=== PATIENT | male | born 1970 | race Caucasian/White ===

== ENCOUNTER 2019-07-24 13:06 | Outpatient (REF) | payer MEDICAID, SELFPAY ==
[2019-07-24 22:25] LABS: ALT 45 U/L (16-63); AST 29 U/L (15-37); Albumin 4.2 g/dL (3.4-5.0); Alkaline Phosphatase 62 U/L (46-116); Anion Gap 8.6 mmol/L (3-11); BUN 18 mg/dL (7-18); Bilirubin, Total 0.5 mg/dL (0.2-1.0); CO2 30.4 mmol/L (21.0-32.0); CREATININE 0.81 mg/dL (0.70-1.30); Calcium 8.7 mg/dL (8.5-10.1); Calculated LDL 202 mg/dL (<100); Chloride 104 mmol/L (98-107); Cholesterol 291 mg/dL (<200); Glucose 95 mg/dL (74-106); HDL Cholesterol 32 mg/dL (40-60); Sodium 143 mmol/L (136-145); Total Protein 6.8 g/dL (6.4-8.2); Triglyceride 288 mg/dL (<150)
[2019-07-26 10:00] LABS: PSA, Screening 0.9 ng/mL (0.0-3.5)
== END 2019-07-24 13:26 ==
LOC: NCHCN 13:06
PROVIDERS: Visit Provider Specialist/Technologist Athletic Trainer
DX: Z13.220 Encounter for screening for lipoid disorders (principal); Z13.228 Encounter for screening for other metabolic disorders; Z12.5 Encounter for screening for malignant neoplasm of prostate
CPT/HCPCS: 80053; 80061; 84153

== ENCOUNTER 2019-07-30 00:40 | Outpatient (CLI) | payer MEDICAID, SELFPAY ==
--- NOTE | 2019-07-30 | DI.US_ITS ---
TECHNIQUE: Ultrasound abdomen performed using standard protocol. COMPARISON: No exams were available for comparison FINDINGS: LIVER: Normal echogenicity. Hepatopedal flow in the Portal Vein. Multiple anechoic well-circumscribe d areas throughout the liver suggestive of cysts. The largest measures 3.6 cm. GALLBLADDER: No evidence of cholelithiasis. No evidence of wall thickening. No pericholecystic fluid identified. KIDNEYS: Kidneys are symmetric in size. No evidence of renal calculi. No evidence of hydronephrosis. No solid renal mass. There are bilateral simple renal cysts present. The largest is on the left and measures 2.5 cm. BILIARY SYSTEM: The common bile duct could not be measured due to overlying bowel gas. No intrahepat ic biliary ductal dilation. MUHAMMAD'S SIGN: Negative. PANCREAS: Normal where visualized. SPLEEN: Not enlarged. ABDOMINAL AORTA AND IVC: Visualized portions normal caliber. ASCITES: None seen. IMPRESSION: 1. Limited examination due to overlying bowel gas. 2. Hepatic and renal cysts. DATA REPOSITORY:
== END 2019-07-30 01:00 ==
PROVIDERS: Visit Provider Specialist/Technologist Athletic Trainer
DX: R10.9 Unspecified abdominal pain (principal); N28.1 Cyst of kidney, acquired
CPT/HCPCS: 76700

== ENCOUNTER 2019-11-06 07:56 | Outpatient (CLI) | payer MEDICAID, SELFPAY ==
[2019-11-06 22:37] LABS: COVID-19 RT-PCR UVMMC Result Negative (Negative)
== END 2019-11-06 08:16 ==
PROVIDERS: PCP Nurse Practitioner Family; Visit Provider Surgery
DX: Z01.818 Encounter for other preprocedural examination (principal); Z11.59 Encounter for screening for other viral diseases
CPT/HCPCS: U0003

== ENCOUNTER 2019-11-09 07:07 | Day surgery (SDC) | payer MEDICAID, SELFPAY ==
[2019-11-09 07:25] VITALS: BP 115/80; PULSE 64; RESP 18; TEMP 36.6; O2SAT 97
[2019-11-09] MEDS: Lactated Ringers 1,000 ML 80 ML IV (07:44)
--- NOTE | 2019-11-09 08:05 | W.PM.DSUDISC ---
Discharge Plan Disposition Patient Disposition: HOME Condition: Good Discharge Details Reason For Visit: EGD, Colonoscopy Attending Provider: Isela Larsen Primary Care Provider: Sherry Desir Home Meds and New Rx's Prescriptions: Continued vitamin E 200 unit capsule 200 unit PO DAILY RF: 0 omega-3 fatty acids [Fish Oil Concentrate] 1,000 mg capsule 1,000 mg PO DAILY RF: 0 vitamin B complex Tablet 1 tab PO DAILY RF: 0 Discontinued polyethylene glycol 3350 17 gram/dose powder 17 g PO ONCE Qty: 238 RF: 0 bisacodyl [Dulcolax (bisacodyl)] 5 mg tablet,delayed release (DR/EC) 5 mg PO ONCE Qty: 4 RF: 0 aspirin 325 mg tablet 325 mg PO DAILY RF: 0 Discharge Instructions Additional Instructions: Findings: Your upper endoscopy (EGD) showed inflammation in the stomach (gastritis). Stop taking aspirin and take an antacid for a month to heal the area. A small polyp was removed from the rectum. My office will contact you with results. Follow up: My office will contact you to schedule CT scan of the abdomen. If the biopsy shows an adenomatous rectal polyp, you will need follow up colonoscopy in 5 years. Please call if you develop: fevers >101.5 Nausea or Vomiting Abdominal pain that is not transient DAY SURGERY UNIT POST COLONOSCOPY INSTRUCTIONS 1. Because there will be medication in your system for the next 24 hours, you may feel a little sleepy. Your coordination will be affected. Therefore: a. Do not drive or operate dangerous equipment for 24 hours. b. Do not drink alcohol beverages for 24 hours (not even beer). c. Plan to go home and rest for the day. 2. Generally there are no restrictions on your activity after a day or so has gone by, but you may feel a bit fatigued for a few days. 3 After you arrive home you may have a light meal and return to a normal diet as you can tolerate it without feeling sick to your stomach. 4. After surgery, you may feel pain or discomfort. This should be only transient, but if it persists please contact your doctor. 5. If there are any questions regarding the findings of your procedure, please feel free to contact your doctor. 6. If you are unable to contact your doctor with a problem, contact the hospital at [phone]. 7. Continue all your regular medications unless directed otherwise. I understand the above instructions and have no questions. Signature of Patient or Responsible Adult Escort Date/Time Name of Responsible Adult Escort Signature of Nurse Date/Time Activity:: Activity as Tolerated Diet:: As Tolerated Discharge Orders Discharge Orders: Discharge Order (Routine); Ordered 11/09/19 Ordered By: Isela Larsen DS: Diagnosis Discharge Diagnosis (1) Gastritis: Status: Acute (2) Colon polyp: Status: Acute
--- NOTE | 2019-11-09 08:16 | STOM_PTH ---
PATIENT: Polo Berkowitz LOC: [facility] U#:[id number] AGE/SX: 49/M ROOM: RE11/09/[address]: Isela Larsen MD : 1970 BED: DIS: 11/09/2019 SPEC #: [id number] RECD: 11/09/19 11:37 STATUS: RADHA REPatrciio #: [id number] MARTINE: 11/09/19 08:[address]: Isela Larsen DEPT: Surgical Specimen RECD BY: Jojo Canales ENTERED: 11/09/19 11:38 SP TYPE: STOMACH OTHR DR: Sherry Deisr Tissues: 1 - BIOPSY BOWEL 2 - STOMACH BIOPSY 3 - ESOPHAGUS BIOPSY 4 - BIOPSY BOWEL Procedures: GROSS AND MICRO LEVEL 4 Comments: [id number]
--- NOTE | 2019-11-09 09:11 | W.PM.ENDDOP ---
Date of service: 11/09/19 Time of Service: 09:11 Endoscopy Report DATE OF PROCEDURE: 11/09/19 PRE-OP DIAGNOSIS: GERD, Screening colonoscopy POST-OP DIAGNOSIS: other (Antral gastritis, possible Barretts, rectal polyp) PROCEDURE: EGD with duodenal, gastric and distal esophageal biopsy Colonoscopy with cold forceps polypectomy SURGEON: Isela Larsen ANESTHESIA: MAC DISPOSITION: same day INDICATIONS: This patient presents for his first screening colonoscopy. He also has a history of atypical chest pain and GERD. PROCEDURE DESCRIPTION: The patient was placed in the left lateral position and propofol titrated to sedation. The endoscope was advanced into the esophagus under direct visualization. The scope was passed through the stomach and into the duodenum. There was no duodenitis or ulceration noted. Biopsies were taken from the second portion of the duodenum to evaluate for celiac disease. The stomach itself showed moderate antral gastritis. Biopsies were taken from the region. Retroflexed view of the fundus and lesser curvature were normal. The GE junction was inspected and showed no significant stricture, inflammation, masses. There may have been a short area of Barretts change which was difficult to measure due to underdistension. This was biopsied as a precaution. The scope was slowly withdrawn with no other esophageal lesions found. The patient was placed in the left Haider position. Propofol was titrated to sedation. Digital rectal examination revealed no abnormalities. The scope was advanced to the cecum without difficulty. The ileocecal valve and appendiceal orifice were clearly identified. The prep was good. The scope was slowly withdrawn over the course of greater than 6 minutes with no abnormalities seen in the ascending, transverse, descending, sigmoid colon. A diminuitive polyp was removed from the recum. The patient tolerated the procedure well and was stable to recovery. If the rectal polyp is adenomatous, he will need follow up colonoscopy in 5 years.
[2019-11-09 09:45] VITALS: BP 117/67; PULSE 85; RESP 18; TEMP 36.7; O2SAT 98
== END 2019-11-09 10:25 | disposition home or self-care (01) ==
PROVIDERS: PCP Nurse Practitioner Family; Visit Provider Surgery
PROC: (CPT 45380; principal; 2019-11-09 08:15)
DX: K31.89 Other diseases of stomach and duodenum (principal); K21.0 Gastro-esophageal reflux disease with esophagitis; Z12.11 Encounter for screening for malignant neoplasm of colon; K29.60 Other gastritis without bleeding
CPT/HCPCS: 45380; 43239; 88305; J2001

== ENCOUNTER 2019-11-15 01:00 | Outpatient (CLI) | payer MEDICAID, SELFPAY ==
[2019-11-15] MEDS: Omnipaque 350 MG/ML 50 ML BTL IJ (08:51)
[2019-11-15] MEDS: Breeza Beverage 473 ML BTL PO ×2 (08:52)
--- NOTE | 2019-11-15 10:38 | DI.CT_ITS ---
EXAM: CT ABDOMEN PELVIS W CLINICAL HISTORY: Pain to right of umbilicus, rt lateral abd pain TECHNIQUE: Imaging Protocol: Axial computed tomography images with coronal and sagittal reformatted images were created and reviewed CONTRAST MATERIAL: Intravenous: Omnipaque 350 Contrast volume:100 mL Oral: Yes COMPARISON: US US ABDOMEN from 07/30/2019 FINDINGS: ABDOMEN: Lung Bases: Normal where visualized. Liver: Normal density. Innumerable hepatic cysts. Portal, Superior Mesenteric, and Splenic Veins: Unremarkable. Gallbladder and Biliary Tract: No radiodense calculus or dilation. Pancreas: Normal density, no abnormal calcifications or inflammatory process. Spleen: Tiny splenic cyst. Mild splenomegaly. Adrenals: No masses seen. Kidneys: Normal size, contour and axis. No radiodense stones or obstructive uropathy. Bilateral renal cysts. Abdominal Aorta: Abdominal portion non-dilated. Mild atherosclerosis. Retroaortic left renal vein. Bowel: No obstruction or bowel wall thickening. Appendix is unremarkable. Peritoneal Cavity: No ascites, collection or mesenteric inflammatory response. Lymph Nodes: Within normal limits. Bones: Mild degenerative changes. Soft Tissues: Small fat containing umbilical hernia. PELVIS: Bladder: Symmetric distention, no gross wall thickening. Reproductive Organs: Unremarkable as visualized. Lymph Nodes: Within normal limits. Bones: Mild degenerative changes. IMPRESSION: 1. Small fat containing umbilical hernia. No abdominal wall mass or abscess. 2. Hepatic and renal cysts. 3. Mild splenomegaly. RADIATION DOSE DELIVERED: Total DLP DATA REPOSITORY: All CT scans at this facility are submitted to the National Radiology Data Registry (NRDR) Dose Index Registry (DIR) with the [employer] (ACR). RADIATION OPTIMIZATION: All CT scans at this facility use at least one of these dose optimization te chniques: automated exposure control; mA and/or kV adjustment per patient size (includes targeted exa ms where dose is matched to clinical indication); or iterative reconstruction.
== END 2019-11-15 01:20 ==
PROVIDERS: PCP Nurse Practitioner Family; Visit Provider Surgery
DX: R10.33 Periumbilical pain (principal); K42.9 Umbilical hernia without obstruction or gangrene; K76.89 Other specified diseases of liver; N28.1 Cyst of kidney, acquired; R16.1 Splenomegaly, not elsewhere classified
CPT/HCPCS: 74177; Q9967

== ENCOUNTER 2020-08-28 16:28 | Outpatient (REF) | payer MEDICAID, SELFPAY ==
[2020-08-28 20:00] LABS: ALT 42 U/L (16-63); AST 26 U/L (15-37); Calculated LDL 136 mg/dL (<100); Cholesterol 201 mg/dL (<200); HDL Cholesterol 39 mg/dL (40-60); Triglyceride 130 mg/dL (<150)
[2020-08-29 17:22] LABS: PSA, Screening 0.9 ng/mL (0.0-3.5)
[2020-09-01 13:30] LABS: Tissue Transglutaminase Ab IgA <1.2 U/mL
== END 2020-08-28 16:29 | disposition home or self-care (01) ==
LOC: NCHCN 16:28
PROVIDERS: PCP Nurse Practitioner Family; Visit Provider Nurse Practitioner Family
DX: E78.5 Hyperlipidemia, unspecified (principal); K29.70 Gastritis, unspecified, without bleeding; Z91.89 Other specified personal risk factors, not elsewhere classified; Z12.5 Encounter for screening for malignant neoplasm of prostate
CPT/HCPCS: 80061; 84153; 83516; 84450; 84460

== ENCOUNTER 2023-07-02 04:22 | Emergency (ER) | payer MEDICAID, SELFPAY ==
[2023-07-02 04:25] VITALS: BP 147/91; PULSE 69; RESP 16; TEMP 37.1; O2SAT 99
--- NOTE | 2023-07-02 04:30 | DI.CT_ITS ---
Exam(s) CT FACIAL W EXAM: CT FACIAL W CLINICAL HISTORY: left dental abscess, left anterior neck TTP. TECHNIQUE: Imaging Protocol: Axial computed tomography images with coronal and sagittal reformatted images were created and reviewed CONTRAST MATERIAL: Intravenous: Omnipaque 350 Contrast volume:structured data in ml mL COMPARISON: There are no priors for comparison. FINDINGS: There is artifact from the patient's dental hardware. Facial Bones: No definite fracture is noted in facial bones. There is a periapical lucency seen arou nd the root of the left 1st bicuspid. (Series 12, image 37). The dental artifact in this area limit s further characterization. Sinuses and Mastoids: There are mucous retention cysts in the maxillary sinuses bilaterally. There is opacification of a few ethmoid air cells. The remaining visualized paranasal sinuses are clear. Globes, extraocular muscles, optic nerves and retrobulbar fat: Normal. Upper aerodigestive tract: Normal. Mandible and bilateral temporomandibular joints: Normal. Soft tissues: There is infiltration of the soft tissues overlying the left maxilla and mandible. No focal fluid collection is seen to suggest an abscess. Enhancement: No abnormal enhancement. IMPRESSION: 1. There is a periapical lucency seen around the root of the left 1st bicuspid suspicious for periapi julisa abscess/cyst. There is associated soft tissue edema surrounding the maxilla and mandible on the left. No definite focal fluid collection is seen to suggest an abscess. However, evaluation is limi aranza by the extensive dental artifact. 2. Mucous retention cysts in the maxillary sinuses bilaterally. RADIATION DOSE DELIVERED: 1,200.64mGy.cm Total DLP DATA REPOSITORY: All CT scans at this facility are submitted to the National Radiology Data Registry (NRDR) Dose Index Registry (DIR) with the [employer] (ACR). RADIATION OPTIMIZATION: All CT scans at this facility use at least one of these dose optimization te chniques: automated exposure control; mA and/or kV adjustment per patient size (includes targeted exa ms where dose is matched to clinical indication); or iterative reconstruction.
--- NOTE | 2023-07-02 04:30 | DI.CT_ITS ---
Exam(s) CT NECK W EXAM: CT NECK W CLINICAL HISTORY: left dental abscess, left anterior neck TTP. TECHNIQUE: Imaging Protocol: Axial computed tomography images with coronal and sagittal reformatted images were created and reviewed. CONTRAST MATERIAL: Intravenous: Omnipaque 350 Contrast volume:100mL COMPARISON: No exams were available for comparison FINDINGS: Visualized paranasal sinuses: Mucous retention cysts are seen in the maxillary sinuses bilaterally. Nasopharynx: Within normal limits. Oropharynx: Within normal limits. Hypopharynx: Within normal limits. Larynx: Within normal limits. Retropharyngeal space: Within normal limits. Parotids/submandibular: Within normal limits. Thyroid gland: There is a solitary calcification in the right lobe of the thyroid gland. Thyroid gl and is otherwise unremarkable. Lymphadenopathy: There is scattered lymph nodes seen along the level one to level three all measurin g less than 8 mm in short axis diameter which are physiologic in nature. Trachea: Within normal limits. Lung apices: Within normal limits. Bones: Within normal limits for the patient's age. Carotids/Jugular: Within normal limits. Soft tissues: Within normal limits. IMPRESSION: No acute abnormality. RADIATION DOSE DELIVERED: 1,200.64mGy.cm Total DLP 1,200.64mGy.cm Total DLP DATA REPOSITORY: All CT scans at this facility are submitted to the National Radiology Data Registry (NRDR) Dose Index Registry (DIR) with the [employer] (ACR). RADIATION OPTIMIZATION: All CT scans at this facility use at least one of these dose optimization te chniques: automated exposure control; mA and/or kV adjustment per patient size (includes targeted exa ms where dose is matched to clinical indication); or iterative reconstruction.
[2023-07-02] MEDS: Clindamycin 150 MG CAP 450 MG PO (04:48)
[2023-07-02] MEDS: Benzocaine 20% Gel 30 GM JAR MM (04:49)
--- NOTE | 2023-07-02 04:52 | ED.GENADUL_ITS ---
HPI General Mode of arrival: ambulatory . Date/Time Provider Initiated Documentation: 07/02/23 04:28 . Limitations to Documentation: no limitations . Information obtained by: patient . HPI Narrative: 53yo M with hx HLD presenting with dental pain and facial swelling. Has a broken tooth and an abscess; has seen his dentist and has an appointment to have tooth pulled in July. Was prescribed a z pack which he just completed. Pain and facial swelling persist, unrelieved by home tylenol and ibuprofen. Whenever he brushes the area it bleeds; has not noted any pus draining. He is otherwise in his usual state of health with no fevers, rash, nausea, vomiting, abdominal pain, chest pain, shortness of breath, neck swelling, neck pain, or other concerns. Related Data Home Medications Medication Instructions Recorded Confirmed omega-3 fatty acids 1,000 mg 1,000 mg PO DAILY 10/15/19 07/02/23 capsule (Fish Oil Concentrate) vitamin E 200 unit capsule 200 unit PO DAILY 10/22/19 07/02/23 vitamin B complex 1 tab PO DAILY 11/08/19 07/02/23 omeprazole magnesium 20 mg 20 mg PO DAILY #30 tabs 11/09/19 07/02/23 tablet,delayed release levofloxacin 750 mg tablet 750 mg PO DAILY #10 tabs 07/02/23 metronidazole 500 mg tablet 500 mg PO Q8H #30 tabs 07/02/23 Previous Rx's Medication Instructions Recorded omeprazole magnesium 20 mg 20 mg PO DAILY #30 tabs 11/09/19 tablet,delayed release levofloxacin 750 mg tablet 750 mg PO DAILY #10 tabs 07/02/23 metronidazole 500 mg tablet 500 mg PO Q8H #30 tabs 07/02/23 Allergies Allergy/AdvReac Type Severity Reaction Status Date / Time penicillin V Allergy Severe unknown Verified 07/02/23 04:29 walnut Allergy Severe unknown Verified 07/02/23 04:29 General Stated Complaint: DentalOral AMARI: 4 Review of Systems Narrative: see HPI Exam Narrative Exam Narrative: General: Alert, well appearing, well nourished, in no acute distress. Head: Normocephalic, atraumatic Neck: Trachea midline, ?Neck supple. Left anterior neck TTP, no overlying warmth or erythema. ENT: ?MMM.? Uvula midline. Abscess adjacent to tooth #12 , no drainage. Left cheek swollen. Mastoid nontender. Cardiac: ?No cyanosis. Resp: No respiratory distress. Speaking in full sentences. Extremities: ?No deformities.? No peripheral edema. Neurologic: GCS 15. ? Moves all extremities freely against gravity Course Vital Signs Vital signs: Vital Signs Temperature 37.1 C 07/02/23 04:25 Pulse 69 07/02/23 04:25 Respiratory Rate 16 07/02/23 04:25 Blood Pressure 147/91 H 07/02/23 04:25 Pulse Oximetry 99 07/02/23 04:25 Temperature 37.1 C 07/02/23 04:25 Temperature Source Skin 07/02/23 04:25 Pulse 69 07/02/23 04:25 Respiratory Rate 16 07/02/23 04:25 Respiratory Effort Normal, Non-Labored 07/02/23 04:30 Blood Pressure 147/91 H 07/02/23 04:25 Blood Pressure Position Sitting 07/02/23 04:25 Pulse Oximetry 99 07/02/23 04:25 Oxygen Delivery Method Room Air 07/02/23 04:25 Oxygen Flow Rate 0 07/02/23 04:25 Pain Level 5 07/02/23 04:25 Medical Decision Making 53yo M with hx HLD presenting with dental pain and facial swelling. Saw his dentist on Tuesday, has broken tooth and dental abscess, scheduled to have tooth pulled on 08/07, was given z-pack which he just completed. Pain and swelling persist. Systemically well with no fevers, rash, nausea, vomiting, or other concerns. No respiratory distress. Reassuring vital signs on arrival, on exam he does have left facial swelling and abscess adjacent to tooth #12. Not septic; will not get labs. Some anterior neck tenderness on exam; will get CT to evaluate extent of infection. Clinically not concerning for Souleymane's or Lemierre's. Hurricane gel for pain, pt declined oxycodone. CT independently reviewed, abscess present, radiology read below with no deep space infection in neck.. On reassessment he remains non-toxic appearing with reassuring vital signs. Given pxn allergy and no improvement with azithromycin, prescribed 10 day course of flagyl and levofloxacin. He has good dental followup. Strict return precautions were reviewed. Discharged home; discharge instructions and return precautions were reviewed with patient who verbalized understanding. All questions were answered and he is in full agreement with the plan. Quality:[facility] Health Related Social Needs: No Data to Display PFSH All Active Problems (Updated 07/02/23 @ 05:55 by Parris Hernández MD) Abscess, periapical (Acute) Colon polyp (Acute) Gastritis (Acute) Right lateral abdominal pain (Acute) Colon cancer screening (Acute) GERD (gastroesophageal reflux disease) (Chronic) Medical History (Updated 07/02/23 @ 05:55 by Parris Hernández MD) Family history of alcoholism Hyperlipidemia Right shoulder pain Pt. states this is his LEFT Abdominal pain Dyspepsia Elevated liver enzymes Surgical History History of ear surgery Ear drum replacement, Skin graft on my ear drum because I had it punctured Hx of tympanostomy tubes x4 Social History Smoking/Tobacco Use Status: Never Smoking risk assessment performed?: Yes Alcohol Intake: never Drug use: Never Substance use type: does not use Do you feel safe at home: Yes Do you feel safe in your relationship?: Yes Discharge Plan Disposition Patient Disposition: Home Condition: Good Discharge Details Clinical Impression: Abscess, periapical Primary Care Provider: Sherry Desir ED Provider: Parris Hernández Home Meds and New Rx's Prescriptions: New metronidazole 500 mg tablet 500 mg PO Q8H Qty: 30 0RF levofloxacin 750 mg tablet 750 mg PO DAILY Qty: 10 0RF Continued vitamin E 200 unit capsule 200 unit PO DAILY omega-3 fatty acids [Fish Oil Concentrate] 1,000 mg capsule 1,000 mg PO DAILY omeprazole magnesium 20 mg tablet,delayed release (DR/EC) 20 mg PO DAILY Qty: 30 1RF vitamin B complex Tablet 1 tab PO DAILY Discharge Instructions Instructions: Dental Abscess (ED) Additional Instructions: Call your dentist as soon as possible to discuss your visit here and to move up your appointment to have your tooth pulled. Take the antibiotics as prescribed until they are all gone. Tylenol and ibuprofen over the counter for pain; follow the directions on the bottle. Return to the emergency department for new or worsening symptoms including fever, neck pain/swelling, difficulty breathing, intolerable pain, or if you have any other concerns. Referrals: Sherry Deisr [Primary Care Provider] -
[2023-07-02] MEDS: Omnipaque 350 MG/ML 100 ML BTL IJ (05:41)
[2023-07-02] MEDS: Normal Saline - Diluent 50 ML VIAL IJ (05:42)
[2023-07-02] MEDS: Normal Saline Flush 10 ML SYR IVP (05:42)
--- NOTE | 2023-07-02 05:46 | DI.VRAD_ITS ---
PROCEDURE INFORMATION: Exam: CT Maxillofacial With Contrast Exam date and time: 07/02/2023 5:01 AM Age: 53 years old Clinical indication: Other: Left dental abscess, left anterior neck ttp TECHNIQUE: Imaging protocol: Computed tomography of the face with contrast. Contrast material: OMNI 350; Contrast volume: 60 ml; Contrast route: INTRAVENOUS (IV); COMPARISON: CT NECK W 07/02/2023 5:01 AM FINDINGS: Orbital cavities: Orbits are normal. Globes are unremarkable. Bones/joints: There is a #12 periapical dental lucency with external cortical breakthrough and overlying soft tissue inflammation, compatible with a periapical dental abscess. There may be an associated subperiosteal abscess (images 74-78 of axial series 10); however, the dense associated beam hardening artifact makes this difficult to assess with certainty. There is no soft tissue gas. Paranasal sinuses: Multiple small polyp/mucous retention cyst in the maxillary sinuses bilaterally. Soft tissues: See Bones/joints finding. Dental: There is extensive dental hardware with associated beam hardening artifact, limiting evaluation. IMPRESSION: 1. There is extensive dental hardware with associated beam hardening artifact, limiting evaluation. 2. There is a #12 periapical dental lucency with external cortical breakthrough and overlying soft tissue inflammation, compatible with a periapical dental abscess. There may be an associated subperiosteal abscess (images 74-78 of axial series 10); however, the dense associated beam hardening artifact makes this difficult to assess with certainty. There is no soft tissue gas. Dictated and Authenticated by: Collin Saenz MD. Ordering:MOE Nye MD
--- NOTE | 2023-07-02 05:48 | DI.VRAD_ITS ---
PROCEDURE INFORMATION: Exam: CT Neck With Contrast Exam date and time: 07/02/2023 5:01 AM Age: 53 years old Clinical indication: Other: Left dental abscess, left anterior neck ttp TECHNIQUE: Imaging protocol: Computed tomography of the neck with contrast. Contrast material: OMNI 350; Contrast volume: 100 ml; Contrast route: INTRAVENOUS (IV); COMPARISON: CT FACIAL W 07/02/2023 5:01 AM FINDINGS: Pharynx: Unremarkable. No significant tonsillar enlargement. Larynx: Unremarkable. Epiglottis is normal. Prevertebral and retropharyngeal spaces: Unremarkable. Salivary glands: Normal. Glands are normal in size. Thyroid: Normal. No enlarged or calcified nodules. Lymph nodes: Unremarkable. No lymphadenopathy. Trachea: Visualized trachea is unremarkable. Lungs: Unremarkable as visualized. Bones/joints: Unremarkable. No acute fracture. Soft tissues: Unremarkable. No significant soft tissue swelling. IMPRESSION: No acute findings. Dictated and Authenticated by: Collin Saenz MD. Ordering:MOE Nye MD
== END 2023-07-02 06:10 | disposition home or self-care (01) ==
LOC: ER 07:06
PROVIDERS: Emergency Provider Student in an Organized Health Care Education/Training Program; PCP Nurse Practitioner Family
DX: K04.7 Periapical abscess without sinus (principal)
CPT/HCPCS: 70491; 99285; 70487; 99284; J3490

== ENCOUNTER 2023-11-07 09:39 | Outpatient (REF) | payer MEDICAID, SELFPAY ==
[2023-11-07 17:29] LABS: BUN 17 mg/dL (7-18); Calcium 8.8 mg/dL (8.5-10.1); Glucose 95 mg/dL (74-106)
[2023-11-07 17:30] LABS: ALT 41 U/L (16-63); AST 24 U/L (15-37); Alkaline Phosphatase 61 U/L (46-116); Anion Gap 8.1 mmol/L (3-11); Bilirubin, Total 0.68 mg/dL (0.2-1.0); CO2 28.9 mmol/L (21.0-32.0); Calculated LDL 203 mg/dL (<100); Chloride 108 mmol/L (98-107); Cholesterol 264 mg/dL (<200); Estimated GFR 88.88 (mL/min/1.73m2); HDL Cholesterol 41 mg/dL (40-60); Potassium 4.2 mmol/L (3.5-5.1); Sodium 145 mmol/L (136-145); Total Protein 6.7 g/dL (6.4-8.2); Triglyceride 101 mg/dL (<150)
[2023-11-08 00:08] LABS: PSA, Screening 1.1 ng/mL (<=3.5)
== END 2023-11-07 09:40 | disposition home or self-care (01) ==
LOC: NCHCN 09:39
PROVIDERS: PCP Nurse Practitioner Family; Visit Provider Physician Assistant
DX: E78.5 Hyperlipidemia, unspecified (principal); Z12.5 Encounter for screening for malignant neoplasm of prostate
CPT/HCPCS: 80053; 80061; 84153

== ENCOUNTER 2024-03-22 12:55 | Outpatient (CLI) | payer MEDICAID, SELFPAY ==
--- NOTE | 2024-03-22 12:55 | DI.RAD_ITS ---
Exam(s) XR CHEST 2V PA LATERAL EXAM: XR CHEST 2V PA LATERAL CLINICAL HISTORY: R05.9 cough TECHNIQUE: 2D digital imaging was performed of the chest. Two images were obtained. PA and lateral views were obtained. COMPARISON: No exams were available for comparison FINDINGS: MEDIASTINUM: Normal. HEART: Normal. PULMONARY VASCULATURE: Normal. LUNGS: Clear. PLEURAL SPACE: No pleural effusion or pneumothorax. BONE:Within normal limits for the patient's age. OTHER FINDINGS:Normal. IMPRESSION: No acute pulmonary findings. DATA REPOSITORY: RADIATION DOSE DELIVERED:
== END 2024-03-22 13:15 ==
PROVIDERS: PCP Nurse Practitioner Family; Visit Provider Physician Assistant Medical
DX: R05.8 Other specified cough (principal)
CPT/HCPCS: 71046

== ENCOUNTER 2024-06-07 03:54 | Outpatient (CLI) | payer MEDICAID, SELFPAY ==
[2024-06-07 10:36] LABS: ALT 27 U/L (16-63); Calculated LDL 104 mg/dL (<100); Cholesterol 150 mg/dL (<200); HDL Cholesterol 39 mg/dL (40-60); Triglyceride 39 mg/dL (<150)
== END 2024-06-07 03:55 | disposition home or self-care (01) ==
PROVIDERS: PCP Nurse Practitioner Family; Visit Provider Physician Assistant
DX: E78.5 Hyperlipidemia, unspecified (principal)
CPT/HCPCS: 36415; 80061; 84460

== ENCOUNTER 2024-09-01 12:31 | Inpatient (IN) | payer MEDICAID, SELFPAY ==
[2024-09-01] VITALS (16 sets, daily range): BP systolic 121–152; BP diastolic 83–105; PULSE 63–81; RESP 14–21; TEMP 36.2–36.6; O2SAT 96–100
--- NOTE | 2024-09-01 12:30 | RT.EKG_ITS ---
APPROVED REPORT Exam: Resting ECG Reason for Exam: dizzy Patient Location: E HR:73 bpm ECG Measurements Heart Rate 73 AXIS AK 172 P 42 QRSd 91 QRS 47 QT 415 T 124 QTc 459 Conclusion Sinus rhythm [address] depression TWI V3,4,5,6 no stemi
--- NOTE | 2024-09-01 12:56 | ED.GENADUL_ITS ---
Discharge Plan Disposition Patient Disposition: Admit to [facility] Condition: Fair Discharge Details Chief Complaint: Chest Pain Clinical Impression: Abnormal ECG Primary Care Provider: Sherry Desir ED Provider: Adrianna Briscoe Home Meds and New Rx's Prescriptions: No Action vitamin E 200 unit capsule 200 unit PO DAILY omega-3 fatty acids [Fish Oil Concentrate] 1,000 mg capsule 1,000 mg PO DAILY omeprazole magnesium 20 mg tablet,delayed release (DR/EC) 20 mg PO DAILY Qty: 30 1RF vitamin B complex Tablet 1 tab PO DAILY HPI General Date/Time Provider Initiated Documentation: 09/01/24 12:32 . Limitations to Documentation: no limitations . Information obtained by: patient . HPI Narrative: 54-year-old gentleman with past medical history of GERD presents for evaluation of not feeling well. He states that the last couple of days he has had significant fatigue. He reports that he has not been able to complete his normal tasks. 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 But over the last couple of days he has gotten winded while doing this and is requiring rest. He does not report pain in his chest but just have weird feeling. He does report some pain in his left shoulder. He states that he has a family history of coronary disease. He had a catheterization in his 30s but this did not reveal an acute abnormality. He reports that he started on semaglutide injections about 6 weeks ago. Reports his dose increased about 2 weeks ago. He reports that other than the last few days he has not been having any symptoms from these injections. He denies any nausea or vomiting. Denies fever or other recent illness. Related Data Home Medications ?Medication ?Instructions ?Recorded ?Confirmed omega-3 fatty acids 1,000 mg 1,000 mg PO DAILY 10/15/19 09/01/24 capsule (Fish Oil Concentrate) vitamin E 200 unit capsule 200 unit PO DAILY 10/22/19 09/01/24 vitamin B complex 1 tab PO DAILY 11/08/19 09/01/24 omeprazole magnesium 20 mg 20 mg PO DAILY #30 tabs 11/09/19 09/01/24 tablet,delayed release Previous Rx's ?Medication ?Instructions ?Recorded omeprazole magnesium 20 mg 20 mg PO DAILY #30 tabs 11/09/19 tablet,delayed release Allergies Allergy/AdvReac Type Severity Reaction Status Date / Time penicillin V Allergy Severe unknown Verified 09/01/24 12:41 walnut Allergy Severe unknown Verified 09/01/24 12:41 General Stated Complaint: Chest Pain AMARI: 3 Exam Narrative Exam Narrative: Review of Systems: All systems reviewed & are unremarkable except as noted in HPI and below Well-developed, no acute distress NCAT PERRL, normal conjunctiva RRR no murmur, no chest wall tenderness No hypoxia, crackles in left base, no increased work of breathing Nondistended abdomen , soft nontender Extremities w/o edema skin clammy to touch Course Vital Signs Vital signs: Vital Signs Pulse 81 09/01/24 12:35 Respiratory Rate 16 09/01/24 12:35 Blood Pressure 127/83 09/01/24 12:35 Pulse Oximetry 100 09/01/24 12:35 Pulse 81 09/01/24 12:35 Respiratory Rate 16 09/01/24 12:35 Blood Pressure 127/83 09/01/24 12:35 Pulse Oximetry 100 09/01/24 12:35 Oxygen Delivery Method Room Air 09/01/24 12:35 Oxygen Flow Rate 0 09/01/24 12:35 Pain Level 0 09/01/24 12:35 Medical Decision Making Emergent evaluation of vague symptoms concerning for cardiac etiology. Patient's EKG was independently interpreted and: Sinus [address] depressions with T wave inversions V3 4 and 5. These T wave inversions are fairly significant and concerning for ischemia. However there is no prior for comparison so it is unknown clear how acute these are. He is clammy to touch and his story seems concerning for unstable angina. Full dose aspirin given. Will check blood work including cardiac biomarkers. Serial troponins negative x 2. EKG with persistent ST depression and T wave inversions, no dynamic changes. Patient reports he feels tired but otherwise no change in symptoms. Heart score 6. Spoke with Dr. Bonilla cardiology, she categorizes this patient is an intermediate risk chest pain and given his family history she is recommending transfer to [facility] for further inpatient workup. Accepting Dr. Gallego. Recommend continuing baby aspirin and the patient's home statin.. She is not recommending heparin or Plavix load at this time. They are listing for inpatient beds tomorrow so the patient will be admitted to this facility pending bed availability. Quality:[facility] Health Related Social Needs: No Data to Display PFSH All Active Problems (Updated 09/01/24 @ 15:10 by Adrianna Briscoe MD) Abnormal ECG (Acute) Colon polyp (Acute) Gastritis (Acute) Right lateral abdominal pain (Acute) Colon cancer screening (Acute) GERD (gastroesophageal reflux disease) (Chronic) Medical History (Updated 09/01/24 @ 15:10 by Adrianna Briscoe MD) Family history of alcoholism Hyperlipidemia Right shoulder pain Pt. states this is his LEFT Abdominal pain Dyspepsia Elevated liver enzymes Surgical History History of ear surgery Ear drum replacement, Skin graft on my ear drum because I had it punctured Hx of tympanostomy tubes x4 Social History Smoking/Tobacco Use Status: Never Smoking risk assessment performed?: Yes Alcohol Intake: never Drug use: Never Substance use type: does not use Do you feel safe at home: Yes Do you feel safe in your relationship?: Yes
[2024-09-01] MEDS: Aspirin 81 MG CHEW 324 MG CH (13:00)
[2024-09-01 13:09] LABS: Abs Immature Grans 0.03 10^3/uL (0.0-0.06); Absolute Basophil Count 0.02 10^3/uL (0.0-0.2); Absolute Eosinophil Count 0.04 10^3/uL (0.0-0.7); Absolute Lymphocyte Count 1.47 10^3/uL (1.2-3.4); Absolute Monocyte Count 0.34 10^3/uL (0.1-0.8); Absolute Neutrophil Count 2.76 10^3/uL (1.2-6.7); Basophils % 0.4 %; Eosinophils % 0.9 %; HCT 44.4 % (40.0-50.0); HGB 15.9 g/dL (13.5-17.5); Immature Grans % 0.6 %; Lymphocytes % 31.5 %; MCH 30.2 pg (27.0-33.0); MCHC 35.8 % (32.0-36.0); MCV 84 fL (80-95); Monocytes % 7.3 %; Neutrophils % 59.3 %; Platelet Count 186 10^3/uL (130-400); RBC 5.26 10^6/uL (4.36-5.78); RDW 12.1 % (11.8-14.1); RDW-SD 36.4 fL; WBC 4.66 10^3/uL (4.4-10.8)
--- NOTE | 2024-09-01 13:15 | DI.RAD_ITS ---
Exam(s) XR PORTABLE CHEST AP EXAM: XR PORTABLE CHEST AP CLINICAL HISTORY: Chest pain. TECHNIQUE: 2D digital imaging was performed. COMPARISON: CR XR CHEST 2V PA LATERAL from 03/22/2024 FINDINGS: Single AP portable view. Heart size is upper normal. The mediastinum is not widened. Lungs are clear. No infiltrates nor obvious pleural effusions. IMPRESSION: No acute pulmonary findings on this single AP portable view of the chest. DATA REPOSITORY: RADIATION DOSE DELIVERED:
[2024-09-01 13:18] LABS: INR 1.1 (0.9-1.1); Prothrombin Time 11.2 sec (9.1-11.1)
[2024-09-01 13:25] LABS: ALT 37 U/L (16-63); AST 30 U/L (15-37); Albumin 4.2 g/dL (3.4-5.0); Alkaline Phosphatase 64 U/L (46-116); Anion Gap 5.2 mmol/L (3-11); BUN 16 mg/dL (7-18); Bilirubin, Total 0.8 mg/dL (0.2-1.0); CO2 30.8 mmol/L (21.0-32.0); CREATININE 1.1 mg/dL (0.70-1.30); Calcium 9.1 mg/dL (8.5-10.1); Chloride 105 mmol/L (98-107); Estimated GFR 78.79 (mL/min/1.73m2); Glucose 84 mg/dL (74-106); Lipase 47 U/L (<78); NT-proBNP 40 pg/mL (<300); Potassium 4.2 mmol/L (3.5-5.1); Sodium 141 mmol/L (136-145); Total Protein 6.8 g/dL (6.4-8.2); Troponin I 9 ng/L (<or=76)
--- NOTE | 2024-09-01 13:30 | RT.EKG_ITS ---
APPROVED REPORT Exam: Resting ECG Reason for Exam: CHEST PAIN Patient Location: E HR:82 bpm ECG Measurements Heart Rate 82 AXIS MS 168 P 37 QRSd 91 QRS 42 QT 395 T 134 QTc 462 Conclusion Sinus rhythm [address] depression TWI V3,4,5,6 no stemi
--- NOTE | 2024-09-01 13:34 | DI.VRAD_ITS ---
PROCEDURE INFORMATION: Exam: XR Chest Exam date and time: 09/01/2024 1:16 PM Age: 54 years old Clinical indication: Chest pressure and chest wall pain; Chest pain TECHNIQUE: Imaging protocol: Radiologic exam of the chest. Views: 1 view. COMPARISON: CR XR CHEST 2V PA LATERAL 03/22/2024 12:52 PM FINDINGS: Lungs: Unremarkable. No consolidation. Pleural spaces: Unremarkable. No pleural effusion. No pneumothorax. Heart/Mediastinum: Unremarkable. No cardiomegaly. Bones/joints: Unremarkable. IMPRESSION: No acute findings. Dictated and Authenticated by: Johnny Lane MD. Orderin Luis Felipe Sharma MD
[2024-09-01 14:10] LABS: Troponin I 9 ng/L (<or=76)
--- NOTE | 2024-09-01 15:34 | HPE_ITS ---
Date of service: 09/01/24 Time of Service: 15:34 Assessment and Plan Assessment and plan (1) Abnormal ECG: Status: Acute Assessment and plan: Patient does appear to have anginal equivalents and will be sent down to [facility] for further evaluation and treatment most likely with cardiac cath (2) Hyperlipidemia: Assessment and plan: Will need restratification in the outpatient setting (3) Cardiac murmur: Status: Acute Assessment and plan: Does appear to have a GEORGI which can be further classified during cardiac cath or with outpatient echo History of Present Illness History of Present Illness Chief Complaint: SOB Narrative: 54-year-old gentleman who is in good health presents with 1 week history of worsening shortness of breath with exertion. This got significantly worse over the last 24 hours prompting him to come into the ED for further evaluation and treatment. While he is in the ED an EKG was performed as well as his laboratory work and a chest x-ray. EKG did show T wave inversion in the lateral and actually the septal anterior and lateral leads. Patient's troponins were essentially negative. The ED physician reached out to [facility] cardiology who recommended admission for further intervention most likely a cardiac cath but did not have any beds at this time. Patient will be admitted here until a bed becomes available. At the time of my discussion with the patient he is denying any chest pain. According to the ED physician the only intervention at this time that was requested and was full dose aspirin but no Plavix or heparin. Patient is minimal open made aware of the plan and is agreeable. Of note the patient does have a significant family history of heart disease. Patient denies any tobacco alcohol or drug use. Of note the patient did get a cardiac cath approximately 20 years ago at work and this was reported as benign although I do not have the data to review. Review of Systems All systems reviewed & are unremarkable except as noted in HPI and below PFSH All Active Problems (Updated 09/01/24 @ 15:41 by Gerber Pagan MD) Cardiac murmur (Acute) Abnormal ECG (Acute) Colon polyp (Acute) Gastritis (Acute) Right lateral abdominal pain (Acute) Colon cancer screening (Acute) GERD (gastroesophageal reflux disease) (Chronic) Medical History (Updated 09/01/24 @ 15:41 by Gerber Pagan MD) Family history of alcoholism Hyperlipidemia Right shoulder pain Pt. states this is his LEFT Abdominal pain Dyspepsia Elevated liver enzymes Surgical History History of ear surgery Ear drum replacement, Skin graft on my ear drum because I had it punctured Hx of tympanostomy tubes x4 Social History Smoking/Tobacco Use Status: Never Smoking risk assessment performed?: Yes Alcohol Intake: never Drug use: Never Substance use type: does not use Do you feel safe at home: Yes Do you feel safe in your relationship?: Yes Meds Allergies and Home Medications Allergies Allergy/AdvReac Type Severity Reaction Status Date / Time penicillin V Allergy Severe unknown Verified 09/01/24 12:41 walnut Allergy Severe unknown Verified 09/01/24 12:41 Home Medications ?Medication ?Instructions ?Recorded ?Confirmed ?Type omega-3 fatty acids 1,000 mg 1,000 mg PO DAILY 10/15/19 09/01/24 History capsule (Fish Oil Concentrate) vitamin E 200 unit capsule 200 unit PO DAILY 10/22/19 09/01/24 History vitamin B complex 1 tab PO DAILY 11/08/19 09/01/24 History omeprazole magnesium 20 mg 20 mg PO DAILY #30 tabs 11/09/19 09/01/24 Rx tablet,delayed release Exam Narrative Exam Narrative: HEENT: Normocephalic atraumatic mucous membranes moist oropharynx clear extremity strength intact Neck: No lymphadenopathy no JVD no thyromegaly cardiovascular: Regular rate and rhythm 2 out of 6 stock ejection murmur Pulm: Clear to auscultation bilaterally with good air exchange Abdomen: Soft nontender nondistended bowel sounds active Extremity: No cyanosis clubbing or edema bilaterally neurologic: Cranial nerves II through XII intact as tested Reflexes upper extremity normal as tested Constitutional: 54-year-old gentleman appears his stated age no apparent distress Results Labs 09/01/24 12:54 09/01/24 12:54 Labs: Laboratory Results - last 24 hr 09/01/24 09/01/24 12:54 13:48 WBC 4.66 RBC 5.26 Hgb 15.9 Hct 44.4 MCV 84 MCH 30.2 MCHC 35.8 RDW 12.1 Plt Count 186 MPV 9.0 Immature Gran % 0.6 Neutrophils % 59.3 Lymphocytes % 31.5 Monocytes % 7.3 Eosinophils % 0.9 Basophils % 0.4 Nucleated RBC % 0.0 Absolute Neutrophils 2.76 Absolute Lymphocytes 1.47 Absolute Monocytes 0.34 Absolute Eosinophils 0.04 Absolute Basophils 0.02 PT 11.2 H INR 1.1 Sodium 141 Potassium 4.2 Chloride 105 Carbon Dioxide 30.8 Anion Gap 5.2 BUN 16 Creatinine 1.1 Est GFR (CKD-EPI 2020) 78.79 Glucose 84 Calcium 9.1 Total Bilirubin 0.8 AST 30 ALT 37 Alkaline Phosphatase 64 Troponin I 9 9 NT-Pro-B Natriuret Pep 40 Total Protein 6.8 Albumin 4.2 Lipase 47 Last Vital Signs Pulse 73 09/01/24 15:20 Resp 15 09/01/24 15:20 BP 152/96 H 09/01/24 15:20 Pulse Ox 99 09/01/24 15:20 Time Spent Time spent with Patient: <40 minutes Time was spent: preparing to see the patient(eg.review tests), obtaining and/or reviewing separately otained hiistory, ordering medications,tests, procedures, referring, communicating with other health intensive care medicine specialist, indepentently interpreting results, counseling the patient and care coordination
[2024-09-01 16:07] LABS: Magnesium 2.1 mg/dL (1.8-2.4)
[2024-09-01 16:30] LABS: Troponin I 8 ng/L (<or=76)
--- NOTE | 2024-09-01 17:37 | W.PC.ACHO ---
Registration Status: Primary Language: Preferred Language: ED Information & Data Chief Complaint Chest Pain 09/01/24 13:09 Chief Complaint Chest Pain 09/01/24 13:00 Triage Note doesnt feel right has 09/01/24 12:35 indigestion, chest tightness (sternal) and feels tired. C/o left shoulder pain, started a few days ago Medical / Surgical History (Last Reviewed 11/09/19 @ 07:30 by Hannah Del Angel, RN) Family history of alcoholism Hyperlipidemia Right shoulder pain Abdominal pain Dyspepsia Elevated liver enzymes (Last Reviewed 11/09/19 @ 07:31 by Hannah Del Angel, RN) History of ear surgery Hx of tympanostomy tubes Most Recent Vital Signs Temperature 36.2 C L 09/01/24 16:57 Pulse 68 09/01/24 16:57 Pulse Rhythm Regular 09/01/24 16:57 Pulse 64 09/01/24 16:21 Respiratory Rate 16 09/01/24 16:57 Respiratory Effort Normal, Non-Labored 09/01/24 16:57 Respiratory Depth Normal 09/01/24 16:57 Respiratory Pattern Normal 09/01/24 16:57 Blood Pressure 126/95 H 09/01/24 16:57 Blood Pressure Mean 111 09/01/24 16:21 Pulse Oximetry 97 09/01/24 16:57 Oxygen Delivery Method Room Air 09/01/24 16:57 Oxygen Flow Rate 0 09/01/24 16:57 Pain Level 0 09/01/24 12:35 Allergies penicillin V Allergy (Severe, Verified 09/01/24 12:41) unknown My hands began to itch, and my mouth throat begin to swell, I began to go into anyphylactic shock. walnut Allergy (Severe, Verified 09/01/24 12:41) unknown gums begin to bleed Precautions Isolation Standard precaution 09/01/24 13:09 IV IV Catheter Type [Left Saline Lock Antecubital] IV Catheter Gauge [Left 18 Antecubital] Diet Orders Category Date Time Status Heart Healthy Eating [DIET] Nutrition 09/01/24 Dinner Active Diagnostics 09/01/24 09/01/24 09/01/24 Range/Units 18:20 16:52 15:58 WBC (4.4-10.8) 10^3/uL RBC (4.36-5.78) 10^6/uL Hgb (13.5-17.5) g/dL Hct (40.0-50.0) % MCV (80-95) fL MCH (27.0-33.0) pg MCHC (32.0-36.0) % RDW (11.8-14.1) % Plt Count (130-400) 10^3/uL MPV (8.0-11.0) fL Immature Gran % % Neutrophils % % Lymphocytes % % Monocytes % % Eosinophils % % Basophils % % Nucleated RBC % (0.0-0.3) % Absolute Neutrophils (1.2-6.7) 10^3/uL Absolute Lymphocytes (1.2-3.4) 10^3/uL Absolute Monocytes (0.1-0.8) 10^3/uL Absolute Eosinophils (0.0-0.7) 10^3/uL Absolute Basophils (0.0-0.2) 10^3/uL PT (9.1-11.1) sec INR (0.9-1.1) Sodium (136-145) mmol/L Potassium (3.5-5.1) mmol/L Chloride (98-107) mmol/L Carbon Dioxide (21.0-32.0) mmol/L Anion Gap (3-11) mmol/L BUN (7-18) mg/dL Creatinine (0.70-1.30) mg/dL Est GFR (CKD-EPI 2020) (mL/min/1.73m2) Glucose (74-106) mg/dL Calcium (8.5-10.1) mg/dL Magnesium (1.8-2.4) mg/dL Total Bilirubin (0.2-1.0) mg/dL AST (15-37) U/L ALT (16-63) U/L Alkaline Phosphatase (46-116) U/L Troponin I Pending Pending 8 (<or=76) ng/L NT-Pro-B Natriuret Pep (<300) pg/mL Total Protein (6.4-8.2) g/dL Albumin (3.4-5.0) g/dL Lipase (<78) U/L 09/01/24 09/01/24 Range/Units 13:48 12:54 WBC 4.66 (4.4-10.8) 10^3/uL RBC 5.26 (4.36-5.78) 10^6/uL Hgb 15.9 (13.5-17.5) g/dL Hct 44.4 (40.0-50.0) % MCV 84 (80-95) fL MCH 30.2 (27.0-33.0) pg MCHC 35.8 (32.0-36.0) % RDW 12.1 (11.8-14.1) % Plt Count 186 (130-400) 10^3/uL MPV 9.0 (8.0-11.0) fL Immature Gran % 0.6 % Neutrophils % 59.3 % Lymphocytes % 31.5 % Monocytes % 7.3 % Eosinophils % 0.9 % Basophils % 0.4 % Nucleated RBC % 0.0 (0.0-0.3) % Absolute Neutrophils 2.76 (1.2-6.7) 10^3/uL Absolute Lymphocytes 1.47 (1.2-3.4) 10^3/uL Absolute Monocytes 0.34 (0.1-0.8) 10^3/uL Absolute Eosinophils 0.04 (0.0-0.7) 10^3/uL Absolute Basophils 0.02 (0.0-0.2) 10^3/uL PT 11.2 H (9.1-11.1) sec INR 1.1 (0.9-1.1) Sodium 141 (136-145) mmol/L Potassium 4.2 (3.5-5.1) mmol/L Chloride 105 (98-107) mmol/L Carbon Dioxide 30.8 (21.0-32.0) mmol/L Anion Gap 5.2 (3-11) mmol/L BUN 16 (7-18) mg/dL Creatinine 1.1 (0.70-1.30) mg/dL Est GFR (CKD-EPI 2020) 78.79 (mL/min/1.73m2) Glucose 84 (74-106) mg/dL Calcium 9.1 (8.5-10.1) mg/dL Magnesium 2.1 (1.8-2.4) mg/dL Total Bilirubin 0.8 (0.2-1.0) mg/dL AST 30 (15-37) U/L ALT 37 (16-63) U/L Alkaline Phosphatase 64 (46-116) U/L Troponin I 9 9 (<or=76) ng/L NT-Pro-B Natriuret Pep 40 (<300) pg/mL Total Protein 6.8 (6.4-8.2) g/dL Albumin 4.2 (3.4-5.0) g/dL Lipase 47 (<78) U/L Intake and Output - 24 Hour Total 09/01/24 12:31 thru 09/01/24 16:57 Weight 83.915 kg Other: Urine Appearance Clear Falls Risk Assessment History of Falls No History 09/01/24 16:57 Contributing Factors No Factors 09/01/24 16:57 Ambulatory Aids Independent 09/01/24 16:57 Tubes/Lines With any additional score 09/01/24 16:57 Gait Evaluation No gait disturbance 09/01/24 16:57 Cognition No cognitive impairment 09/01/24 16:57 Fall Total Score 20 09/01/24 16:57 Level of Risk Standard/Low Risk 09/01/24 16:57 Problems (Last Reviewed 11/09/19 @ 07:30 by Hannah Del Angel RN) Cardiac murmur (Acute) Abnormal ECG (Acute) v v v v v v v v v Sending and/or Receiving Nurses: Please use comment section below to note any information pertinent to the patient hand-off not included above. Information / Comments: Report received from: JONNY Corona RN report called at 16:26.
[2024-09-01 19:16] LABS: Troponin I 9 ng/L (<or=76)
--- NOTE | 2024-09-01 20:31 | W.PM.DS.N ---
Date of service: 09/01/24 Time of Service: 20:31 DS: Diagnosis Discharge Diagnosis (1) Abnormal ECG: Status: Acute Asessment and Plan: This is a 54-year-old gentleman with exertional dyspnea and abnormal EKG admitted for possible acute coronary syndrome but not started on Plavix or heparin infusion admitted and given a loading dose of aspirin. He had abnormal EKG with no comparison. He has been transferred to [facility] cardiology service. Patient has a strong family history of early onset heart disease and did have previous cardiac and exertion 20 years ago with report not available. He is not on medical therapy. He is not having chest pain. He did not receive any nitroglycerin. He did not receive any statin therapy. He is a full code. (2) Hyperlipidemia: Asessment and Plan: Not on statin therapy this can be initiated by [facility] with transfer imminent. (3) Cardiac murmur: Status: Acute Asessment and Plan: Follow-up with echocardiogram. Discharge Plan Disposition Patient Disposition: Transfer-Acute Inpatient Care Specific Acute In Facility: [facility] Condition: Stable Discharge Details Reason For Visit: ACS, abnormal EKG, SOB, chest pain on exertion Admit Date/Time: 09/01/24 16:53 Admit Provider: Gerber Pagan Attending Provider: Gerber Pagan Primary Care Provider: Sherry Desir Hospital Course Hospital Course: This is a 54-year-old male patient who was admitted with exertional dyspnea worse over the last 24 hours but present for about 1 week. He does have a history of previous chronic catheterization 20 years ago which was reported as benign but not available for review. He was just as having hyperlipidemia but is not on statin therapy with this to be addressed once transferred to [facility] cardiology for possible cardiac catheterization after review of his status. Patient did not receive any nitroglycerin, he was not placed on Plavix or heparin infusion. He was not having chest pain at rest. He had no dyspnea at rest. He has a very strong family history of heart disease at an early age. He does have a heart murmur found on admission and this can be followed up with echocardiogram at [facility]. He is being transferred via ambulance with ACLS protocol. He is a full code. Home Meds and New Rx's Prescriptions: No Action vitamin E 200 unit capsule 200 unit PO DAILY omega-3 fatty acids [Fish Oil Concentrate] 1,000 mg capsule 1,000 mg PO DAILY omeprazole magnesium 20 mg tablet,delayed release (DR/EC) 20 mg PO DAILY Qty: 30 1RF vitamin B complex Tablet 1 tab PO DAILY Discharge Instructions Activity:: Activity as Tolerated Equipment/Supplies:: No Equipment Needed Diet:: NPO Discharge Orders Discharge Orders: Discharge Order (Routine); Ordered 09/01/24 Ordered By: Carlos Lam DS: Summary Time Spent with Patient providing and/or coordinating discharge services: Less than 30 minutes Status at Discharge Functional status at discharge: independent ambulation Overall status at discharge: patient is progressing back to baseline Mental Status: mental status grossly normal Speech and Movement: speech and movement normal Mood: congruent mood Affect: normal affect Quality:SDOH Health Related Social Needs: No Data to Display Exam Narrative Exam Narrative: Unchanged from admission, see H&P. Psych Mental Status: mental status grossly normal Speech and Movement: speech and movement normal Mood: congruent mood Affect: normal affect DS: Data Vitals/I&O Vitals and I&O: Vital Signs Temperature 36.6 C 09/01/24 19:49 Temperature Source Temporal Artery Scan 09/01/24 19:49 Pulse 71 09/01/24 19:49 Pulse Rhythm Regular 09/01/24 16:57 Pulse 64 09/01/24 16:21 Respiratory Rate 16 09/01/24 19:49 Respiratory Effort Normal, Non-Labored 09/01/24 16:57 Respiratory Depth Normal 09/01/24 16:57 Respiratory Pattern Normal 09/01/24 16:57 Blood Pressure 135/89 09/01/24 19:49 Blood Pressure Mean 111 09/01/24 16:21 Pulse Oximetry 96 09/01/24 19:49 Oxygen Delivery Method Room Air 09/01/24 19:49 Oxygen Flow Rate 0 09/01/24 19:49 Pain Level 0 09/01/24 12:35 Intake & Output 08/31/24 09/01/24 09/01/24 23:59 11:59 23:59 Weight 83.915 kg Other: Urine Appearance Clear Data Completed and Pending Pending studies at discharge: Echocardiogram Labs on day of discharge: Labs from last 24 hours 09/01/24 09/01/24 09/01/24 18:20 15:58 13:50 WBC RBC Hgb Hct MCV MCH MCHC RDW Plt Count MPV Immature Gran % Neutrophils % Lymphocytes % Monocytes % Eosinophils % Basophils % Nucleated RBC % Absolute Neutrophils Absolute Lymphocytes Absolute Monocytes Absolute Eosinophils Absolute Basophils PT INR Sodium Potassium Chloride Carbon Dioxide Anion Gap BUN Creatinine Est GFR (CKD-EPI 2020) Glucose Calcium Magnesium Total Bilirubin AST ALT Alkaline Phosphatase Troponin I Pending 8 9 NT-Pro-B Natriuret Pep Total Protein Albumin Lipase 09/01/24 09/01/24 13:48 12:54 WBC 4.66 RBC 5.26 Hgb 15.9 Hct 44.4 MCV 84 MCH 30.2 MCHC 35.8 RDW 12.1 Plt Count 186 MPV 9.0 Immature Gran % 0.6 Neutrophils % 59.3 Lymphocytes % 31.5 Monocytes % 7.3 Eosinophils % 0.9 Basophils % 0.4 Nucleated RBC % 0.0 Absolute Neutrophils 2.76 Absolute Lymphocytes 1.47 Absolute Monocytes 0.34 Absolute Eosinophils 0.04 Absolute Basophils 0.02 PT 11.2 H INR 1.1 Sodium 141 Potassium 4.2 Chloride 105 Carbon Dioxide 30.8 Anion Gap 5.2 BUN 16 Creatinine 1.1 Est GFR (CKD-EPI 2020) 78.79 Glucose 84 Calcium 9.1 Magnesium 2.1 Total Bilirubin 0.8 AST 30 ALT 37 Alkaline Phosphatase 64 Troponin I 9 9 NT-Pro-B Natriuret Pep 40 Total Protein 6.8 Albumin 4.2 Lipase 47 PFSH All Active Problems (Updated 09/01/24 @ 15:41 by Gerber Pagan MD) Cardiac murmur (Acute) Abnormal ECG (Acute) Colon polyp (Acute) Gastritis (Acute) Right lateral abdominal pain (Acute) Colon cancer screening (Acute) GERD (gastroesophageal reflux disease) (Chronic) Medical History (Updated 09/01/24 @ 15:41 by Gerber Pagan MD) Family history of alcoholism Hyperlipidemia Right shoulder pain Pt. states this is his LEFT Abdominal pain Dyspepsia Elevated liver enzymes Surgical History History of ear surgery Ear drum replacement, Skin graft on my ear drum because I had it punctured Hx of tympanostomy tubes x4 Social History Smoking/Tobacco Use Status: Never Smoking risk assessment performed?: Yes Alcohol Intake: never Drug use: Never Substance use type: does not use Housing: house Do you feel safe at home: Yes Do you feel safe in your relationship?: Yes Time Spent with Patient Time Spent with Patient: <45 minutes Time was spent: preparing to see the patient(eg.review tests), referring, communicating with other health healthcare prof and care coordination
--- NOTE | 2024-09-01 21:08 | NUR.NOTE ---
[place] [facility] [place] brandi [place] 2106. patient left in via [facility] at 2049, VSS. patient stable upon discharge
== END 2024-09-01 20:50 | disposition short-term general hospital (02) | DRG 313 ==
LOC: ER 16:53 → MS 17:50
PROVIDERS: Nurse Practitioner Acute Care; Admitting Provider Hospitalist; Emergency Provider Emergency Medicine; PCP Nurse Practitioner Family; Visit Provider Hospitalist
DX: R07.89 Other chest pain (principal); R01.1 Cardiac murmur, unspecified; R94.31 Abnormal electrocardiogram [ECG] [EKG]; E78.5 Hyperlipidemia, unspecified; R06.09 Other forms of dyspnea; K29.70 Gastritis, unspecified, without bleeding; K21.9 Gastro-esophageal reflux disease without esophagitis; Z82.49 Family history of ischemic heart disease and other diseases of the circulatory system; Z79.899 Other long term (current) drug therapy
CPT/HCPCS: 00123; 36415; 80053; 83690; 93005; 99285; 71045; 83735; 83880; 84484; 85025; 85610; 93010; 99222; 99238

== ENCOUNTER 2024-09-04 15:52 | Outpatient (RCR) | payer MEDICAID, SELFPAY | END 2024-09-12 23:59 | disposition home or self-care (01) | LOC: CR 15:52 | PROVIDERS: PCP Nurse Practitioner Family; Visit Provider Internal Medicine Cardiovascular Disease ==

== ENCOUNTER 2024-09-11 08:00 | Outpatient (CLI) | payer MEDICAID, SELFPAY ==
[2024-09-11 09:24] LABS: ALT 45 U/L (16-63); AST 27 U/L (15-37); Albumin 4.1 g/dL (3.4-5.0); Alkaline Phosphatase 82 U/L (46-116); Anion Gap 7.7 mmol/L (3-11); BUN 18 mg/dL (7-18); Bilirubin, Total 0.9 mg/dL (0.2-1.0); CO2 30.3 mmol/L (21.0-32.0); Chloride 106 mmol/L (98-107); Estimated GFR 88.33 (mL/min/1.73m2); Glucose 84 mg/dL (74-106); Potassium 3.8 mmol/L (3.5-5.1); Sodium 144 mmol/L (136-145); Total Protein 6.9 g/dL (6.4-8.2)
== END 2024-09-11 08:01 | disposition home or self-care (01) ==
LOC: LBO 08:01
PROVIDERS: PCP Nurse Practitioner Family
DX: I25.10 Atherosclerotic heart disease of native coronary artery without angina pectoris (principal); E78.5 Hyperlipidemia, unspecified
CPT/HCPCS: 36415; 80053

== ENCOUNTER 2024-09-24 12:15 | Outpatient (CLI) | payer MEDICAID, SELFPAY ==
--- NOTE | 2024-09-24 12:15 | RT.EKG_ITS ---
APPROVED REPORT Exam: Resting ECG Reason for Exam: baseline needed Patient Location: O HR:60 bpm ECG Measurements Heart Rate 60 AXIS OR 180 P 49 QRSd 101 QRS 54 QT 461 T 205 QTc 461 Conclusion Sinus rhythm...normal P axis, V-rate 50- 99 Left atrial enlargement...P, P'>60mS, <-0.15mV V1 Repol abnrm, prob ischemia, anterolateral lds...ST dep, T neg, I aVL V2-V6
== END 2024-09-24 12:16 | disposition home or self-care (01) ==
LOC: DI.CARD 12:16
PROVIDERS: PCP Nurse Practitioner Family; Visit Provider Internal Medicine Cardiovascular Disease
DX: R01.1 Cardiac murmur, unspecified (principal); I51.7 Cardiomegaly
CPT/HCPCS: 93010

== ENCOUNTER 2024-09-24 12:43 | Outpatient (RCR) | payer MEDICAID, SELFPAY | END 2024-10-13 23:59 | disposition home or self-care (01) | LOC: CR 12:43 | PROVIDERS: PCP Nurse Practitioner Family; Visit Provider Internal Medicine Cardiovascular Disease | DX: I25.10 Atherosclerotic heart disease of native coronary artery without angina pectoris (principal); Z51.89 Encounter for other specified aftercare | CPT/HCPCS: S9472 ==

== ENCOUNTER 2025-03-13 16:20 | Emergency (ER) | payer MEDICAID, SELFPAY ==
[2025-03-13 16:25] VITALS: BP 133/82; PULSE 72; RESP 20; TEMP 36.7; O2SAT 96
--- NOTE | 2025-03-13 16:30 | DI.RAD_ITS ---
Exam(s) XR HAND RT COMPLETE EXAM: XR HAND RT COMPLETE CLINICAL HISTORY: bit by dog, ?fracture. TECHNIQUE: 2D digital imaging was performed of the right hand. Three images were obtained. AP, lateral and oblique views were obtained. COMPARISON: No exams were available for comparison FINDINGS: BONES: No acute fracture is present. No bony destructive lesion is seen. JOINTS: No dislocation present. SOFT TISSUE: There is soft tissue swelling of the 2nd and 3rd fingers. No radiopaque foreign bodies are seen in the soft tissues. There is small amount of soft tissue gas in the 3rd finger adjacent to the proximal phalanx. IMPRESSION: 1. No acute fracture or dislocation. 2. Soft tissue swelling of the 2nd and 3rd fingers. 3. No radiopaque foreign body. DATA REPOSITORY: RADIATION DOSE DELIVERED:
--- NOTE | 2025-03-13 16:41 | W.ED.GENAD ---
Discharge Plan Disposition Patient Disposition: Home Condition: Stable Discharge Details Clinical Impression: Dog bite of right hand Primary Care Provider: Rick Coulter ED Provider: True Scott Home Meds and New Rx's Prescriptions: New doxycycline hyclate 100 mg tablet 100 mg PO BID Qty: 14 0RF Continued atorvastatin 80 mg tablet 80 mg PO DAILY Patient Comments: TAKE ONE TABLET BY MOUTH EVERY EVENING ezetimibe 10 mg tablet 10 mg PO DAILY Patient Comments: TAKE ONE TABLET BY MOUTH EVERY DAY No Action vitamin E 200 unit capsule 200 unit PO DAILY omega-3 fatty acids [Fish Oil Concentrate] 1,000 mg capsule 1,000 mg PO DAILY omeprazole magnesium 20 mg tablet,delayed release (DR/EC) 20 mg PO DAILY Qty: 30 1RF vitamin B complex Tablet 1 tab PO DAILY pantoprazole 40 mg tablet,delayed release (DR/EC) 40 mg PO DAILY Patient Comments: TAKE ONE TABLET BY MOUTH EVERY DAY prasugrel HCl 10 mg tablet 10 mg PO DAILY Patient Comments: TAKE ONE TABLET BY MOUTH EVERY DAY Discharge Instructions Additional Instructions: Your x-ray did not show any concerning findings at this time. Try to keep your hand elevated when sitting or laying down as it likely will become swollen as your body heals the wounds. If you have signs of infection such as spreading redness down the arm or high fevers return to the emergency department for reevaluation. HPI General Mode of arrival: ambulatory. Date/Time Provider Initiated Documentation: 03/13/25 16:20. Limitations to Documentation: no limitations. Information obtained by: patient. History of Present Illness 55 year old M presents to the emergency department with the chief complaint of right hand dog bite, described as mild, Quality is described as aching, Patient started experiencing this hour(s) (1) and it has been constant. No relieving factors improve symptom(s), No exacerbating factors reported . Patient notes no other symptoms.. Related Data Home Medications Medication Instructions Recorded Confirmed omega-3 fatty acids 1,000 mg 1,000 mg PO DAILY 10/15/19 03/13/25 capsule (Fish Oil Concentrate) vitamin E 200 unit capsule 200 unit PO DAILY 10/22/19 03/13/25 Held on 03/13/25. Instructions: Pt Stopped/Never Started vitamin B complex 1 tab PO DAILY 11/08/19 03/13/25 Held on 09/01/24. Instructions: Pt Stopped/Never Started omeprazole magnesium 20 mg 20 mg PO DAILY #30 tabs 11/09/19 03/13/25 tablet,delayed release atorvastatin 80 mg tablet 80 mg PO DAILY 03/13/25 03/13/25 doxycycline hyclate 100 mg tablet 100 mg PO BID #14 tabs 03/13/25 ezetimibe 10 mg tablet 10 mg PO DAILY 03/13/25 03/13/25 pantoprazole 40 mg tablet,delayed 40 mg PO DAILY 03/13/25 03/13/25 release prasugrel HCl 10 mg tablet 10 mg PO DAILY 03/13/25 03/13/25 Previous Rx's Medication Instructions Recorded omeprazole magnesium 20 mg 20 mg PO DAILY #30 tabs 11/09/19 tablet,delayed release doxycycline hyclate 100 mg tablet 100 mg PO BID #14 tabs 03/13/25 Allergies Allergy/AdvReac Type Severity Reaction Status Date / Time penicillin V Allergy Severe unknown Verified 03/13/25 16:22 walnut Allergy Severe unknown Verified 03/13/25 16:22 General Stated Complaint: AnimalBite AMARI: 3 Review of Systems All systems reviewed & are unremarkable except as noted in HPI and below Constitutional Constitutional: Denies chills, Denies fever(s) and Denies weakness Cardiovascular Cardiovascular: Denies dyspnea Respiratory Respiratory: Denies dyspnea Gastrointestinal Gastrointestinal: Denies abdominal pain and Denies vomiting Neurologic Neurologic: Denies weakness Exam Const General: no acute distress Orientation: alert [facility] Head: normal to inspection Ears: external ears normal General nose exam: external nose normal Mouth: moist mucous membranes Eyes General: appearance normal, both eyes and all related structures Neck Neck: normal visual inspection Resp Effort & Inspection: normal respiratory effort and able to speak in complete sentences Cardio Rate: regular rate Skin General skin exam: no rashes or lesions noted Neuro General: patient alert and patient oriented x3 Extrem General: full ROM and capillary refill normal Psych Mental Status: mental status grossly normal Course Vital Signs Vital signs: Vital Signs Temperature 36.7 C 03/13/25 16:25 Pulse 72 03/13/25 16:25 Respiratory Rate 20 03/13/25 16:25 Blood Pressure 133/82 03/13/25 16:25 Pulse Oximetry 96 03/13/25 16:25 Temperature 36.7 C 03/13/25 16:25 Temperature Source Tympanic 10/29/25 16:25 Pulse 72 03/13/25 16:25 Respiratory Rate 20 03/13/25 16:25 Blood Pressure 133/82 03/13/25 16:25 Blood Pressure Position Sitting 03/13/25 16:25 Pulse Oximetry 96 03/13/25 16:25 Oxygen Delivery Method Room Air 03/13/25 16:25 Oxygen Flow Rate 0 03/13/25 16:25 Pain Level 2 03/13/25 16:25 Medical Decision Making 55-year-old male with hx of CAD on asa and prasugrel comes in with chief complaint of dog bite to the right hand. He says it was his own dog but is up-to-date on shots but it was in the right hand. He did not fall or sustain other injuries. He has a small less than 1 mm puncture wound to the posterior index finger and also a superficial half centimeter laceration just proximal to the index finger MCP joint. There is full range of motion intact sensation. Will range of motion of the wrist. He is anaphylactic to penicillin so we will start him on doxycycline. Will have nursing clean the wounds and also obtain x-rays to evaluate fracture. Patient stable, x-ray shows no fractures. His wounds were cleaned extensively, he will return if there is any signs of infection. Differential Diagnosis Differential Diagnosis: dog bite, laceration PFSH All Active Problems (Updated 03/13/25 @ 17:57 by True Scott MD) Dog bite of right hand (Acute) Cardiac murmur (Acute) Abnormal ECG (Acute) Colon polyp (Acute) Gastritis (Acute) Right lateral abdominal pain (Acute) Colon cancer screening (Acute) GERD (gastroesophageal reflux disease) (Chronic) Medical History (Updated 03/13/25 @ 17:57 by True Scott MD) Family history of alcoholism Hyperlipidemia Right shoulder pain Pt. states this is his LEFT Abdominal pain Dyspepsia Elevated liver enzymes Surgical History History of ear surgery Ear drum replacement, Skin graft on my ear drum because I had it punctured Hx of tympanostomy tubes x4 Social History Smoking/Tobacco Use Status: Never Smoking risk assessment performed?: Yes Alcohol Intake: never Drug use: Never Substance use type: does not use Housing: house Do you feel safe at home: Yes Do you feel safe in your relationship?: Yes
[2025-03-13 18:07] VITALS: BP 133/82; PULSE 72; RESP 20; TEMP 36.7; O2SAT 96
[2025-03-13] MEDS: Doxycycline Hyclate 100 MG, 2 CAPS/BTL PO (18:08)
== END 2025-03-13 18:08 | disposition home or self-care (01) ==
PROVIDERS: Emergency Provider Emergency Medicine; PCP Physician Assistant
DX: S61.451A Open bite of right hand, initial encounter (principal); W54.0XXA Bitten by dog, initial encounter
CPT/HCPCS: 99283 ×2; 73130; J2004